=== PATIENT | female | born 1985 | race Asian ===

== ENCOUNTER 2019-04-02 12:59 | Inpatient (IN) | payer OTHER ==
[2019-04-02] VITALS (35 sets, daily range): BP systolic 88–134; BP diastolic 51–85; PULSE 71–120; TEMP 97.9–98.1
[~2019-04-02] VITALS: Ht 167.6 cm; Wt 100.9 kg
--- NOTE | 2019-04-02 13:00 | NUR ---
Pt arrives on unit ambulatory with mother. States SROM of clear fluid at 1200. Changed into a clean gown. EFM and toco applied. VSS. Amniotest positive. SVE per this RN /-2. Dr. Sarmiento notified. See physician notification. Admission assessment completed. IV started in . Labs drawn. LR and Patrick infusing. Consents signed. Pt updated on POC. Safety reviewed. Bed locked in low position. Call light within reach. No questions or concerns at this time.
[2019-04-02] MEDS ORDERED: PRENATAL MVI (13:22)
[2019-04-02 14:45] LABS: BASO % 0.4 % (0.0-2.0); EOS # 0.1 (0.0-0.7); EOS % 0.9 % (0-4.0); GRAN % 73.7 % (42.2-75.2); HEMATOCRIT 38.3 % (37.0-47.0); HEMOGLOBIN 12.6 g/dl (12.5-16.0); LYMPH # 1.8 (1.2-3.4); LYMPH % 17.1 % (20.0-51.0); MEAN CELL VOLUME 88 fl (80.0-100.0); MEAN CORPUSCULAR HEMOGLOBIN 29 pg (27.0-31.0); MEAN CORPUSCULAR HGB CONC 33 g/dl (33.0-37.0); MEAN PLATELET VOLUME 12.4 fl (7.4-10.4); MONO # 0.8 (0.1-0.6); MONO % 7.5 % (1.7-9.3); PLATELET COUNT 154 K/mm3 (130-400); RED BLOOD COUNT 4.36 M/mm3 (4.10-5.30); REDCELL DISTRIBUTION WIDTH-CV 14.6 % (11.5-14.5)
--- NOTE | 2019-04-02 15:20 | NUR ---
SVE unchanged. Pt request to ambulate before starting pitocin. Pt int'd and taken off monitors.
--- NOTE | 2019-04-02 16:04 | NUR ---
Pt back to monitors. FHR tracing. Moderate variability with accelerations. Pitocin infusion started.
[2019-04-03] VITALS (14 sets, daily range): BP systolic 91–125; BP diastolic 51–82; PULSE 72–109; TEMP 97.9–98.6
--- NOTE | 2019-04-03 01:30 | NUR ---
0030- Patient compete and feeling vaginal pressure at this time. 0045- Patient in lithotomy and instructed on pushing. Initial push at this time. 0100- Nurse remains at bedside while patient is pushing. 0110- Dr. Sanz called for delivery at this time. 0123- Dr. Sanz at bedside for eminent delivery. 0130- Spontaneous delivery of viable female at this time. No nuchal cord or shoulder dytocia. 0133- Spontaneous delivey of intact placenta, pitocin rapidly infusing at 333cc/hr. 0135- Cord blood obtained. Second degree repaired per Dr. Sanz at this time. 0140- Apgars 9,9,9 - infant weight 8#, 21 inches long. 0140- recovery start time. VSS. Epidural shut off at this time.
--- NOTE | 2019-04-03 07:00 | NUR ---
Sits up in bed, alert. States baby has eaten 20 minutes on each side. States still fussy. Let her know that this nurse would take baby to nursery so she can rest. Patient agrees.
--- NOTE | 2019-04-03 11:00 | NUR ---
Sits up in room on bench. datapower consultant here working with .
[2019-04-04] MEDS ORDERED: IBU800 M1 PO (08:52)
[2019-04-04 09:00] VITALS: BP 115/68; PULSE 84; TEMP 98.1
[2019-04-04 16:50] VITALS: BP 101/67; PULSE 75; TEMP 98
--- NOTE | 2019-04-04 18:30 | NUR ---
Patient is requesting a blood sugar check.
[2019-04-04 20:00] VITALS: BP 99/60; PULSE 88; TEMP 99
[2019-04-05 07:00] VITALS: BP 109/63; PULSE 77; TEMP 97.8
--- NOTE | 2019-04-05 11:13 | NUR ---
PATIENT WATCHED EDUCATIONAL VIDEOS AT THIS TIME
[2019-04-05 12:00] VITALS: BP 135/79; PULSE 86; TEMP 98.1
[2019-04-05 16:10] VITALS: BP 112/69; PULSE 81; TEMP 98.2
--- NOTE | 2019-04-05 20:55 | NUR ---
Pt to be discharged home at this time. Reviewed discharge instructions. Infant bands removed and HUGS bracelet removed. Footprint sheet completed. Pt off unit in wheelchair with and belongings.
== END 2019-04-05 20:55 | disposition home or self-care (01) | DRG 807 ==
LOC: LDRO 12:59 → LDR 13:14 → OB 13:14
PROVIDERS: ADMIT Obstetrics & Gynecology
PROC: 10E0XZZ Delivery of Products of Conception, External Approach (ICD-10-PCS; principal; 2019-04-03)
PROC: 0KQM0ZZ Repair Perineum Muscle, Open Approach (ICD-10-PCS; 2019-04-03)
DX: O99.824 Streptococcus B carrier state complicating childbirth (principal); Z37.0 Single live birth; O48.0 Post-term pregnancy; Z3A.40 40 weeks gestation of pregnancy; O70.1 Second degree perineal laceration during delivery
CPT/HCPCS: J2540; J2590; J7120

== ENCOUNTER → 2019-04-19 | Outpatient (CLI) | payer OTHER ==
[~2019-04-19] MED LIST: IBU800 M1 PO; PRENATAL MVI
== END ==
LOC: COL.RAD 07:30
DX: G35 Multiple sclerosis (principal); M51.24 Other intervertebral disc displacement, thoracic region; M47.812 Spondylosis without myelopathy or radiculopathy, cervical region; M48.02 Spinal stenosis, cervical region
CPT/HCPCS: A9585

== ENCOUNTER 2019-04-30 10:17 | Outpatient (CLI) | payer OTHER ==
[~2019-04-30] VITALS: Ht 167.6 cm; Wt 91.4 kg
[2019-04-30] VITALS (7 sets, daily range): BP systolic 103–112; BP diastolic 63–71; PULSE 56–74; TEMP 98.2
--- NOTE | 2019-04-30 18:00 | NUR ---
Pt did well during her observation period without any serious bradycardia or hypotension, 2nd EKG was obtained and Dr. Mcgarry was notified this was done. pt is ambulatory to exit with steady gait. She did take the remainder of her medication with her (13 more doses).
== END 2019-04-30 18:02 | disposition home or self-care (01) ==
LOC: EUO 10:17
DX: G35 Multiple sclerosis (principal)
CPT/HCPCS: G0378